=== PATIENT | female | born 1985 | race Caucasian/White ===

== ENCOUNTER → 2024-01-24 | Outpatient (CLI) | payer BC | LOC: LAB SHORT 07:11 → LAB EV 07:11 | DX: D48.5 Neoplasm of uncertain behavior of skin (principal) | CPT/HCPCS: 88342 ==

== ENCOUNTER 2025-02-20 02:29 | Day surgery (SDC) | payer BC, OTHER ==
[~2025-02-20 02:29] MED LIST: SIMPONI100 MG/1 M IV
[2025-02-20 15:57] VITALS: BP 117/77
[2025-02-20] MEDS ORDERED: Golimumab 130 MG in NS 100 ML IV SCH (16:00)
== END 2025-02-20 17:01 | disposition home or self-care (01) ==
LOC: ATC 02:29
DX: M05.79 Rheumatoid arthritis with rheumatoid factor of multiple sites without organ or systems involvement (principal); D84.821 Immunodeficiency due to drugs; T45.1X5A Adverse effect of antineoplastic and immunosuppressive drugs, initial encounter; Z79.60 Long term (current) use of unspecified immunomodulators and immunosuppressants
CPT/HCPCS: 96365; J1602

== ENCOUNTER 2025-04-17 04:20 | Day surgery (SDC) | payer BC, OTHER ==
[~2025-04-17] VITALS: Wt 62.3 kg
[2025-04-17 14:01] VITALS: BP 124/83
[2025-04-17] MEDS ORDERED: GOLIMUMAB IV SCH (14:05)
[2025-04-17] MEDS ORDERED: NS IV SCH (14:05)
== END 2025-04-17 14:58 | disposition home or self-care (01) ==
LOC: ATC 04:20
DX: M05.9 Rheumatoid arthritis with rheumatoid factor, unspecified (principal); D84.821 Immunodeficiency due to drugs; T45.1X5A Adverse effect of antineoplastic and immunosuppressive drugs, initial encounter; Z79.620 Long term (current) use of immunosuppressive biologic; Z79.899 Other long term (current) drug therapy
CPT/HCPCS: 96365; J1602

== ENCOUNTER 2025-06-12 02:34 | Day surgery (SDC) | payer BC, OTHER ==
[~2025-06-12] VITALS: Wt 62.0 kg
[2025-06-12 14:03] VITALS: BP 109/76
[2025-06-12] MEDS ORDERED: PROP10 PO (14:13)
[2025-06-12] MEDS ORDERED: Robaxin750 MG PO (14:14)
[2025-06-12] MEDS ORDERED: NS IV SCH (14:15)
[2025-06-12] MEDS ORDERED: GOLIMUMAB IV SCH (14:15)
== END 2025-06-12 15:04 | disposition home or self-care (01) ==
LOC: ATC 02:34
DX: M05.9 Rheumatoid arthritis with rheumatoid factor, unspecified (principal); Z90.710 Acquired absence of both cervix and uterus; Z79.620 Long term (current) use of immunosuppressive biologic
CPT/HCPCS: 96365; J1602

== ENCOUNTER 2025-08-07 01:49 | Day surgery (SDC) | payer BC, OTHER ==
[~2025-08-07] VITALS: Wt 63.1 kg
[~2025-08-07 01:49] MED LIST changes: +PROP10 PO; +Robaxin750 MG PO
[2025-08-07 13:56] VITALS: BP 117/80
[2025-08-07] MEDS ORDERED: NS IV SCH (14:15)
[2025-08-07] MEDS ORDERED: GOLIMUMAB IV SCH (14:15)
== END 2025-08-07 15:09 | disposition home or self-care (01) ==
LOC: ATC 01:49
DX: M05.79 Rheumatoid arthritis with rheumatoid factor of multiple sites without organ or systems involvement (principal); D84.821 Immunodeficiency due to drugs; T45.1X5A Adverse effect of antineoplastic and immunosuppressive drugs, initial encounter; Z79.60 Long term (current) use of unspecified immunomodulators and immunosuppressants
CPT/HCPCS: 96365; J1602